=== PATIENT | male | born 1940 | race Caucasian/White ===

== ENCOUNTER → 2018-05-08 | Outpatient (CLI) | payer OTHER ==
[~2018-05-08] MED LIST: APPLE CIDER VI300 MG PO; APPLE CIDER VI500 MG PO; ASPIR 8181 M1 PO; B-121000 MC2 PO; B-125000 MC2 PO; BILBERRY100 MG PO; CALCIUM PLUS M1 EAC1 PO; CALCIUM500 M4 PO; CO Q-10400 MG PO; GINKGO BILOBA120 M1 PO; GINSENG100 M2 PO; L-ARGININE1000 MG PO; L-ARGININE500 M1 PO; MACA500 MG PO; MAGNESIUM200 MG PO; MAGNESIUM400 M1 PO; NEURONTIN300 MG PO; PRESERVISION A1 EAC2 PO; PRILOSEC20 MG PO; SAW PALMETTO160 MG PO; VITAMIN D31000 UNIT PO; VITAMIN K240 MCG PO; [UNRECOGNIZED DRUG - OTHER] PO
== END | disposition home or self-care (01) ==
LOC: CDC 11:36
DX: Z01.810 Encounter for preprocedural cardiovascular examination (principal); D49.4 Neoplasm of unspecified behavior of bladder
CPT/HCPCS: 93000

== ENCOUNTER → 2018-06-02 | Outpatient (CLI) | payer OTHER ==
[~2018-06-02] VITALS: Ht 170.2 cm; Wt 68.0 kg
[~2018-06-02] MED LIST changes: +KRILL OIL 3501 EACH PO
[2018-06-02 07:46] VITALS: BP 170/79
== END | disposition home or self-care (01) ==
LOC: IVINF 07:40
DX: M81.0 Age-related osteoporosis without current pathological fracture (principal); Z87.19 Personal history of other diseases of the digestive system
CPT/HCPCS: 96365; J3489